=== PATIENT | male | born 1975 | race African-American/Black ===

== ENCOUNTER 2016-12-19 14:57 | Emergency (ER) | payer BC ==
[2016-12-19 15:31] VITALS: BP 156/88; PULSE 100; RESP 20; TEMP 97
--- NOTE | 2016-12-19 16:16 | ED ---
General Adult HPI - General Chief complaint: Skin/Abscess/Foreign Body Stated complaint: Rash on Back Time Seen by Provider: 12/19/16 15:56 Source: patient, RN notes reviewed Mode of arrival: ambulatory Limitations: no limitations - History of Present Illness Initial comments: This is a 5-year-old male presents with a rash since September. Patient states he was in alf in September and this is when the rash started. Patient states the rash is very itchy patient has noticed it mostly to his legs, back and trunk. Patient also complains of a stye that he has had bilateral eyes since September as well. Patient denies any purulent drainage, foreign body sensation , blurred vision or pain to these areas. 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 Patient denies any recent fever, chills, shortness breath, chest pain, abdominal pain, nausea/ vomiting/diarrhea, back pain, numbness, tingling, hematuria, headache, or visual changes, or any other complaints. - Related Data Previous Rx's Medication Instructions Recorded Erythromycin Ophth Oint [Romycin 1 applic BOTH EYES QID 7 Days 12/19/16 Ophth Oint] Permethrin 5% Cream [Elimite] 1 applic TOPICAL ONCE #1 bottle 12/19/16 Allergies Allergy/AdvReac Type Severity Reaction Status Date / Time Penicillins Allergy Swelling Verified 12/19/16 15:31 Review of Systems ROS Statement: Those systems with pertinent positive or pertinent negative responses have been documented in the HPI. ROS Other: All systems not noted in ROS Statement are negative. 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 Eye: There are hordeolum to bilateral lower eyelids and to the left upper eyelid. No purulent drainage or sign of infection. Pupils are equal, round and reactive to light, extra-ocular movements are intact. No nystagmus. There is normal conjunctiva bilaterally. No signs of icterus. Patient has permanent blindness right eye. Neck: The neck is supple, there is no tenderness or JVD. Cardiovascular: There is a regular rate and rhythm. No murmur, rub or gallop is appreciated. Respiratory: Lungs are clear to auscultation, respirations are non-labored, breath sounds are equal. No wheezes, stridor, rales, or rhonchi. Musculoskeletal: Normal ROM, no tenderness. Strength 5/5. Sensation intact. Pulses equal bilaterally 2+. Neurological: A&O x 3. CN II-XII intact, There are no obvious motor or sensory deficits. Coordination appears grossly intact. Speech is normal. Skin: Scattered erythematous and scabbed lesions with excoriations the back, trunk and bilateral lower extremities consistent with scabies. Skin is warm and dry. Psychiatric: Cooperative, appropriate mood & affect, normal judgment. Limitations: no limitations Course Vital Signs 12/19/16 15:29 Temperature 97 F L Pulse Rate 100 Respiratory 20 Rate Blood Pressure 156/88 O2 Sat by Pulse 99 Oximetry Medical Decision Making - Medical Decision Making This is a 41-year-old male who presents with a rash since September that is itchy. Patient also complains of styes to bilateral eyes. On physical exam Scattered erythematous and scabbed lesions with excoriations the back, trunk and bilateral lower extremities consistent with scabies. Skin is warm and dry. There are hordeolum to bilateral lower eyelids and to the left upper eyelid. I discussed treatment of scabies with permethrin cream. Discussed the importance of keeping linens and clothing clean with hot water. Discussed that patient may need a repeat treatment in 7 days and he should follow up with his primary care physician for this or return to the [facility] if unable to get into his primary care physician. Patient will be given a referral to primary care physician. I discussed the use of erythromycin ointment to bilateral eyes 4 times a day for 1 week. Discussed warm compresses. I discussed that patient should follow-up with ophthalmology for this. I discussed return parameters. Discussed that patient should follow up with PCP in one to 2 days or return to the [facility] for any worsening symptoms or for any further concerns. Patient was receptive to this plan and patient will be discharged home. I discussed his case with attending physician Dr. Martin who agrees the plan as stated above. Disposition Clinical Impression: Scabies, Hordeolum, Chalazion left upper eyelid Disposition: HOME SELF-CARE Condition: Good Instructions: Scabies (ED), Stye (ED), Chalazion (ED) Additional Instructions: Please use antibiotic ointment as prescribed. Please use warm compresses to the eyes. Please follow-up with ophthalmology. Please use permethrin after a hot shower and apply head to toe and leave on for 8-14 hours. Then wash off and hot shower. Please keep close and linens cleaned every day in hot water. May need a repeat treatment in 7 days. Please follow-up with her primary care physician in one to 2 days or return to the [facility] for any worsening symptoms or for any further concerns. Prescriptions: Erythromycin Ophth Oint [Romycin Ophth Oint] 1 applic BOTH EYES QID 7 Days Permethrin 5% Cream [Elimite] 1 applic TOPICAL ONCE #1 bottle Referrals: None,Stated [Primary Care Provider] - 1-2 days Federico Raman MD [STAFF PHYSICIAN] - 1-2 days Juanita Gonzalez MD [REFERRING] - 1-2 days Salvador Arevalo MD [STAFF PHYSICIAN] - 1-2 days Time of Disposition: 16:25
== END 2016-12-19 16:37 | disposition home or self-care (01) ==
LOC: EC 14:57
DX: B86 Scabies (principal); H00.015 Hordeolum externum left lower eyelid; H00.014 Hordeolum externum left upper eyelid; H00.012 Hordeolum externum right lower eyelid; H00.14 Chalazion left upper eyelid; Z88.0 Allergy status to penicillin
CPT/HCPCS: 99282